=== PATIENT | female | born 1975 | race Caucasian/White ===

== ENCOUNTER → 2017-05-24 | Outpatient (CLI) | payer BC ==
--- NOTE | 2017-05-24 17:54 | WOMENS IMAGING REPORT ---
EXAM DESCRIPTION: BILAT DIAGNOSTIC MAMMO W/CAD COMPLETED DATE/TIME: 05/24/2017 1:25 pm REASON FOR STUDY: N63.10, N63.20 N63.10 UNSPECIFIED LUMP IN THE RIGHT BREAST, UNSPECIFIED ALONDRA COMPARISON: Outside mammograms 04/11/2017 Mammograms here 04/11/2012 TECHNIQUE: Right breast compression magnification views in the CC and MLO orientations. Left breast 90 mediolateral view, left breast cone compression in the CC and MLO orientations. LIMITATIONS: None. FINDINGS: RIGHT BREAST MASSES: No suspicious masses. CALCIFICATIONS: There is a 3 cm area of pleomorphic calcifications in the right breast deep 9 o'clock position. These are highly suspicious for malignancy. Stereotactic biopsy is recommended. ARCHITECTURAL DISTORTION: None. DEVELOPING DENSITY: None. ASYMMETRY: None noted. OTHER: No other significant findings. LEFT BREAST MASSES: No suspicious masses. CALCIFICATIONS: No new or suspicious calcifications. ARCHITECTURAL DISTORTION: None. DEVELOPING DENSITY: None. ASYMMETRY: None noted. OTHER: No other significant finding. Read with the assistance of CAD: .[facility] - R2 Cenova Version 1.3 .[facility] - R2 Cenova Version 1.3 .[facility] - R2 Cenova Version 2.4 .[facility] - R2 Cenova Version 2.4 .[facility] - R2 Vector Control Assistant Version 9.2 IMPRESSION: Right breast pleomorphic microcalcifications highly suspicious for DCIS. Stereotactic b iopsy right breast is recommended. No mammographic evidence for malignancy left breast BREAST DENSITY: c. The breasts are heterogeneously dense, which may obscure small masses. BIRAD: 5 Highly suggestive of malignancy. Appropriate action should be taken. RECOMMENDATION: RECOMMENDED FOLLOW UP: Right breast stereotactic biopsy for calcifications with post biopsy two-view mammogram SPECIFIC INTERVENTION/IMAGING/CONSULTATION RECOMMENDED:As above COMMUNICATION:Results of today's diagnostic mammograms were discussed with patient. She understands the need for a right breast stereotactic biopsy. She is amenable to the biopsy performed at [facility]. These results were also discussed with Andreina Gregory, 1345 hours 05/24/2017 COMMENT: The patient has been notified of the results by letter per MQSA requirements. Additional no tification policies are in place for contacting patient with suspicious or incomplete findings. Quality ID #[id number]: The [employer] recommends an annual screening mammogram for women aged 40 years or over. This facility utilizes a reminder system to ensure that all patients receive reminder letters, and/or direct phone calls for appointments. This includes reminders for routine scr eening mammograms, diagnostic mammograms, or other Breast Imaging Interventions when appropriate. Th is patient will be placed in the appropriate reminder system. The [employer] ([employer]) has developed recommendations for screening MRI of the breast s in certain patient populations, to be used in conjunction with mammography. Breast MRI surveillanc e may be appropriate for women with more than 20% lifetime risk of developing breast cancer as deter mined by genetic testing, significant family history of the disease, or history of mantle radiation f or Hodgkins Disease. ACR Practice Guidelines 2008. TECHNICAL DOCUMENTATION: FINDING NUMBER: (1) ASSESSMENT: (1) JOB ID: [id number] [employer]- All Rights Reserved
== END ==
LOC: WI 12:23
PROVIDERS: ATTEND Nurse Practitioner
DX: N63.10 Unspecified lump in the right breast, unspecified quadrant (principal); N63.20 Unspecified lump in the left breast, unspecified quadrant
CPT/HCPCS: 77066

== ENCOUNTER → 2017-05-30 | Day surgery (SDC) | payer BC ==
[~2017-05-30] MED LIST: LIDOCAINE 1%/EPINEPHRINE INJ 20 ML VIAL ONE
--- NOTE | 2017-06-01 17:28 | WOMENS IMAGING REPORT ---
EXAM DESCRIPTION: STEREO BREAST BX; RIGHT DIG DX MAMMO NO CHG COMPLETED DATE/TIME: 05/30/2017 10:16 am; 05/30/2017 10:09 am REASON FOR STUDY: LUMP OF RIGHT BREAST; POST RT BREAST STEREO N63.10 UNSPECIFIED LUMP IN THE RIGHT BREAST, UNSPECIFIED ALONDRA COMPARISON: Diagnostic mammograms 05/24/2017 TECHNIQUE: Vacuum-assisted stereotactic-guided biopsy of the calcifications of concern in the right lateral breast. Serial progress stereotactic and single digital images acquired. PROCEDURE: The procedure was discussed with the patient, including possible complications such as bleeding, infection, nondiagnostic sample or possible findings such as atypical ductal hyperplasia wh ich would require additional surgery. Possible clip placement was explained. The patient agreed t o the procedure. The patient was placed prone on the stereotactic table. The lesion in the breast was localized ster eotactically. The skin of the breast was prepped in sterile fashion. Superficial and deep local an esthesia was provided. A small incision was made in the skin and the biopsy probe was advanced to t he target. Using the vacuum-assisted core biopsy device, multiple core specimens were obtained. Continuous low dose infusion of local anesthesia was used during the procedure. A specimen radiograph was obtained. The radiograph demonstrated calcifications in the biopsy tissue. Using kyfeohca-in-bsmidnyv technique a pellet and starch clip were deployed at the biopsy site. [place] mographic image confirmed presence of the clip. The probe was then removed and hemostasis obtained with manual compression. A compression bandage was applied. Postoperative instructions were expla ined to the patient. POST-PROCEDURE TWO VIEW DIGITAL MAMMOGRAM: An additional two view [facility]. Marker clips are present at the biopsy site. LIMITATIONS: None. 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 POST PROCEDURE MAMMOGRAMS FOR MARKER PLACEMENT: Yes IMPRESSION: SUCCESSFUL STEREOTACTIC-GUIDED BIOPSY OF THE LESION IN THE RIGHT BREAST. BIOPSY RESULT S ARE CONCORDANT WITH IMAGING FINDINGS. BI-RADS 6 Known biopsy-proven malignancy. Appropriate action should be taken. FOLLOW-UP: Breast MRI and surgical consultation recommended NOTIFICATION: Biopsy findings and recommendations were discussed with the patient, 0830 hours 06/01/19. Biopsy results and recommendations were also discussed with Andreina Ann's nurse, 1100 hours 06/01/2017. COMMENT: Patient medication list reviewed: Yes- Quality ID# [id number]:Eligible professional attests to doc umenting in the medical record they obtained, updated, or reviewed the patient's current medications. TECHNICAL DOCUMENTATION: JOB ID: [id number] [employer]- All Rights Reserved
== END ==
LOC: RAD 08:12
PROVIDERS: ATTEND Nurse Practitioner
PROC: 0HBT3ZX Excision of Right Breast, Percutaneous Approach, Diagnostic (ICD-10-PCS; principal; 2017-05-30)
DX: D05.11 Intraductal carcinoma in situ of right breast (principal)
CPT/HCPCS: 88305 ×2; 19081; J3490

== ENCOUNTER → 2017-06-18 | Outpatient (CLI) | payer BC ==
--- NOTE | 2017-06-19 16:34 | RADIOLOGY REPORT (SQ) ---
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 RENAL FUNCTION: GFR > 60. TECHNIQUE: MR imaging performed with a dedicated breast coil. Pre contrast T1 and T2 weighted images . Pre contrast and post contrast enhanced T1 weighted images with fat saturation. Subtraction images, 3D thick and thin MIPS, and kinetic analysis performed on an independent workstat ion. ([employer] workstation) Magnet strength: 1.5 T LIMITATIONS: None. FINDINGS: BREAST DENSITY: d. The breasts are extremely dense, which lowers the sensitivity of mammog aidee. BACKGROUND PARENCHYMAL ENHANCEMENT:Mild. RIGHT BREAST: In the right breast upper outer quadrant, a mass with irregular ill-defined margins is present 3.5 x 3.2 cm in size. This was previously biopsied, a biopsy clip is present on T1 postcontr ast image 166. There is a small 9 mm fluid collection along the biopsy tract likely a small hematoma . Mass exhibits avid gadolinium enhancement with brisk wash-in and correlates with malignant lesion at pathology. In the right lower outer quadrant 5 cm from the nipple, an 8 mm well-circumscribed nodule is present with high signal on T2, mild contrast enhancement with benign time activity curves likely representin g a small fibroadenoma. In the right breast medially 5 cm from the nipple at 3 o'clock position, a well-circumscribed nodule bright on T2 with benign contrast enhancement characteristics is present measuring about 9 mm in size , also likely a fibroadenoma. No clumped, regional/segmental ductal enhancement. Several small subcentimeter breast parenchymal cysts are scattered throughout the right breast CHEST WALL: Normal tissue planes. No abnormal internal mammary nodes. AXILLA: Normal axillary and retro-pectoral nodes. LEFT BREAST:No suspicious masses. In the left breast 12 to 1 o'clock position 4 cm from the nipple, a 6.5 mm nodule is present, well-circumscribed, bright on T2 with benign enhancement characteristics, likely a small fibroadenoma No clumped, regional/segmental ductal enhancement. Several small subc entimeter cysts are scattered throughout the left breast CHEST WALL: Normal tissue planes. No abnormal internal mammary nodes. AXILLA: Normal axillary and retro-pectoral nodes. OTHER:No identified liver, bone, or lung lesions. No other significant incidental findings. IMPRESSION: Biopsy-proven DCIS with focal areas suspicious for invasion, upper outer quadrant right breast, 3.5 x 3.2 cm in size Multiple smaller subcentimeter benign-appearing breast nodules with imaging characteristics of small benign fibroadenomas. Small bilateral benign breast parenchymal cysts. BIRAD: RIGHT BREAST: 6 Known biopsy-proven malignancy. Appropriate action should be taken. LEFT BREAST: 2 Benign findings. RECOMMENDATION: RECOMMENDED FOLLOW-UP: Surgical consultation for biopsy proven right breast DCIS in the upper-outer quadrant TECHNICAL DOCUMENTATION: JOB ID: [id number] [employer]- All Rights Reserved
== END ==
LOC: RAD 08:57
PROVIDERS: ATTEND Nurse Practitioner
DX: D05.11 Intraductal carcinoma in situ of right breast (principal)
CPT/HCPCS: 82565; A9576; C8906; 77059

== ENCOUNTER 2017-08-20 10:22 | Day surgery (SDC) | payer BC ==
[~2017-08-20 10:22] MED LIST changes: -LIDOCAINE 1%/EPINEPHRINE INJ 20 ML VIAL ONE; +PROPOFOL INJ 200 MG/20 ML VIAL IV ONE
[2017-08-20] MEDS ORDERED: PROPOFOL INJ 200 MG/20 ML VIAL IV ONE (12:19)
--- NOTE | 2017-08-20 12:37 | Operative Report ---
Operative Report DATE OF SURGERY: 08/20/17 Operative Report: The risks, benefits and alternatives of the procedure including risks of bleeding, perforation requiring surgery are explained to the patient in detail and informed consent was obtained. Patient is taken back to the endoscopy suite and placed in a left, lateral decubital position. Timeout was called. Propofol medications administered. A rectal examination is done which did not reveal any masses, tears or fissures. An Olympus videoscope was inserted into the patient's rectum. The scope was Advanced all the way to the cecum. The cecum was identified by the usual anatomical landmarks including the ileocecal valve as well as the appendiceal office. Photodocumentation is obtained. Prep is good. Scope was then sequentially pulled back via the various segments of the colon including the ascending colon, hepatic flexure, transverse colon, splenic flexure, descending colon and finally in to the rectosigmoid portions of the colon. Retroflexion maneuver is performed. PREOPERATIVE DIAGNOSIS: Colorectal cancer screening POSTOPERATIVE DIAGNOSIS: Cecal polyp that was removed via biopsy forceps. Internal hemorrhoids OPERATION: Colonoscopy with biopsy SURGEON: BETSY LIU ANESTHESIA: LMAC TISSUE REMOVED OR ALTERED: As noted above. COMPLICATIONS: None. ESTIMATED BLOOD LOSS: None. INTRAOPERATIVE FINDINGS: As noted above. PROCEDURE: Patient tolerated procedure well. No immediate postprocedure complications are noted. Patient discharged in good condition. Discharge date 08/20/2017. Discharge diet: Regular. Discharge activity: Regular. 2-3 week follow-up to discuss findings. 3-5 year surveillance colonoscopy. We will await pathology. Patient is instructed call the office or proceed to the emergency room should there be any further problems or questions.
[2017-08-20 13:13] VITALS: BP 106/68
== END 2017-08-20 12:56 | disposition home or self-care (01) ==
LOC: END 10:22
PROVIDERS: ATTEND Internal Medicine Gastroenterology
DX: Z12.11 Encounter for screening for malignant neoplasm of colon (principal); K52.9 Noninfective gastroenteritis and colitis, unspecified; D12.0 Benign neoplasm of cecum; K64.8 Other hemorrhoids; I10 Essential (primary) hypertension; E78.2 Mixed hyperlipidemia; F90.9 Attention-deficit hyperactivity disorder, unspecified type; E66.9 Obesity, unspecified; Z79.899 Other long term (current) drug therapy; Z85.3 Personal history of malignant neoplasm of breast; Z68.36 Body mass index [BMI] 36.0-36.9, adult
CPT/HCPCS: 45380; 88305 ×2; J2704; 812

== ENCOUNTER → 2018-11-25 | Outpatient (CLI) | payer BC ==
--- NOTE | 2018-11-25 14:23 | WOMENS IMAGING REPORT ---
EXAM DESCRIPTION: U/S ABDOMEN LIMITED COMPLETED DATE/TIME: 11/25/2018 10:09 am REASON FOR STUDY: R94.5 ABNORMAL RESULTS OF LIVER FUNCTION STUDIES R94.5 ABNORMAL RESULTS OF LIVER FUNCTION STUDIES COMPARISON: None. TECHNIQUE: Dynamic and static grayscale images acquired of the abdomen and recorded on PACS. Additio nal selected color Doppler and spectral images recorded. LIMITATIONS: Limited visualization. Poor acoustical window FINDINGS: PANCREAS: Limited visualization. no masses seen LIVER: Normal size Moderate to marked fatty infiltration. No focal masses. LIVER VASCULATURE: Normal directional flow of the main portal vein and hepatic veins. GALLBLADDER: Surgically absent. ULTRASOUND-DETECTED WAGGONER'S SIGN: Not applicable. INTRAHEPATIC DUCTS AND COMMON DUCT: CBD and intrahepatic ducts normal caliber. No filling defects. INFERIOR VENA CAVA: Normal flow. AORTA: No aneurysm. RIGHT KIDNEY: Normal size. Normal echogenicity. No solid or suspicious masses. No hydronephros is. No calcifications. PERITONEAL AND RIGHT PLEURAL SPACE: No ascites or effusions. OTHER: No other significant findings. IMPRESSION: Fatty liver. No ascites. TECHNICAL DOCUMENTATION: JOB ID: [id number]- All Rights Reserved Reading location - IP/workstation name: [email or web address]
== END ==
LOC: WI 09:24
PROVIDERS: ATTEND Nurse Practitioner
DX: R94.5 Abnormal results of liver function studies (principal)
CPT/HCPCS: 76705